=== PATIENT | female | born 1990 | race Caucasian/White ===

== ENCOUNTER 2022-05-04 15:41 | Emergency (ER) | payer SELFPAY | END 2022-05-04 16:37 | LOC: MW.ED 15:41 | DX: F32.A Depression, unspecified (principal); Z72.0 Tobacco use | CPT/HCPCS: 99284 ==

== ENCOUNTER 2023-05-22 08:05 | Emergency (ER) | payer MEDICAID ==
[2023-05-22] MEDS ORDERED: Diphtheria,Pertussis(Acell),Tetanus Vaccine 0.5 ML Syringe IM ONE (08:12)
== END 2023-05-22 08:51 | disposition home or self-care (01) ==
LOC: MW.ED 08:05
DX: S51.851A Open bite of right forearm, initial encounter (principal); Z23 Encounter for immunization; Z86.16 Personal history of COVID-19; Z90.49 Acquired absence of other specified parts of digestive tract; W54.1XXA Struck by dog, initial encounter
CPT/HCPCS: 90471; 90715; 99282-25; 99283

== ENCOUNTER 2024-03-03 11:54 | Emergency (ER) | payer MEDICAID | END 2024-03-03 12:44 | disposition home or self-care (01) | LOC: MW.ED 11:54 | DX: J02.9 Acute pharyngitis, unspecified (principal); F17.210 Nicotine dependence, cigarettes, uncomplicated; Z90.49 Acquired absence of other specified parts of digestive tract; Z75.8 Other problems related to medical facilities and other health care | CPT/HCPCS: 99282; 99283 ==